=== PATIENT | female | born 1985 | race Caucasian/White ===

== ENCOUNTER 2017-10-04 01:17 | Outpatient (CLI) | payer OTHER | END 2017-10-04 01:18 | disposition home or self-care (01) | LOC: MRI 01:17 | PROVIDERS: ATTEND Neurological Surgery | DX: M51.16 Intervertebral disc disorders with radiculopathy, lumbar region (principal); M48.061 Spinal stenosis, lumbar region without neurogenic claudication | CPT/HCPCS: 72148 ==

== ENCOUNTER 2017-11-10 07:00 | Day surgery (SDC) | payer OTHER ==
[2017-11-09 11:30] VITALS: BMI 30.7
--- NOTE | 2017-11-09 15:32 | HP ---
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 She has had outpatient physical therapist assistant apy, traction, and injections, all of which have mildly held, but she continues retain the same pain and has progressive numbness over the lateral right foot. She has an MRI from [facility] at reveals profound central disk herniation at L5 which is most likely a definitive cause of her symp toms, and she is here to discuss further treatment at this time. PAST MEDICAL HISTORY: Includes migraines. CURRENT MEDICATIONS: Acetazolamide, amitriptyline, rizatriptan, Zofran, and multivitamin. ALLERGIES: No known drug allergies. PAST SURGICAL HISTORY: None. PHYSICAL EXAMINATION: Patient is alert and oriented x3. Gait is mildly antalgic. Lower extremity m otor exam is normal. She has a positive straight leg raise on the right. Reflexes are equal and pre sent bilaterally at the patella. ASSESSMENT: Lumbar radiculopathy. PLAN: Dr. Loya met with the patient, reviewed imaging and ultimately advocated for an L5 diskectomy . He explained to the patient the risks, benefits, and alternatives to the procedure. The patient e xpressed understanding and would like to move forward with surgery as discussed. I do believe the sarai pérez is mentally competent and capable of making medical decisions for herself and we will move forw jordyn with surgery as planned.
[2017-11-10] MEDS ORDERED: CEFAZOLIN/Water 2 GM/20 ML SYRINGE ONE ×2 (07:23→13:52)
[2017-11-10] MEDS ORDERED: Thrombin 5000 UNITS/5 ML VIAL ONE (07:45)
[2017-11-10] MEDS ORDERED: Bupivacaine/Epinephrine 0.25% 30 ML VIAL ONE (07:45)
[2017-11-10] MEDS ORDERED: Midazolam HCl 2 mg/2 ml Vial ONE (07:53)
[2017-11-10] MEDS ORDERED: Fentanyl 100 MCG/2 ML VIAL ONE ×4 (08:44→10:56)
[2017-11-10] MEDS ORDERED: Dexamethasone 20 MG/5 ML VIAL ONE (09:17)
[2017-11-10] MEDS ORDERED: SUGAMMADEX SODIUM 200 MG/2 ML VIAL ONE (10:38)
[2017-11-10] MEDS ORDERED: Promethazine HCl 25 MG/ML VIAL ONE (11:20)
--- NOTE | 2017-11-10 11:51 | OP ---
DATE OF PROCEDURE: 11/10/2017 SURGEON: Ag Loya M.D. FOLDING MACHINE TENDER: Edy Borrego PA-C. INDICATION: Pain. DIAGNOSIS: Lumbar radiculopathy secondary to large lumbar herniated nucleus pulposus. PROCEDURES PERFORMED: L5 laminectomy, L5 discectomy. ANESTHESIA: General. TECHNIQUE: The patient was brought into the operating room and placed under general anesthesia. She was flipped from a supine to a prone position on the operating room table. A linear incision was pl anned over the L5 segment. After prepping and draping and after an appropriate operative pause, the incision was created. Soft tissues were swept away from midline. A self-retaining retractor was therese abram in the wound for optimal exposure. After confirming the appropriate level with C-arm fluoroscopy , an Adson rongeur as well as 3 and 4 mm Kerrisons were used to perform laminectomy along the inferio r aspect of L5 and the superior aspect of S1. The dura was found to be somewhat protuberant secondar y to large disk herniation. We mobilized the thecal sac medially from both the right and leftward di rection where annulotomies were performed in the disk and disk material was removed until there was c omplete decompression of the underlying thecal sac and nerve roots. The wound was then irrigated. H emostasis was maintained throughout. The wound was then closed in anatomic layers and a pressure vero ssing was applied. There were no known procedural complications.
[2017-11-10] MEDS ORDERED: HYDROcodone/Acetaminophen 5/325 mg Tablet ONE (12:42)
== END 2017-11-10 14:15 | disposition home or self-care (01) ==
LOC: SDC 07:00
PROVIDERS: ATTEND Neurological Surgery
PROC: 01NB0ZZ Release Lumbar Nerve, Open Approach (ICD-10-PCS; principal; 2017-11-10)
PROC: 0ST20ZZ Resection of Lumbar Vertebral Disc, Open Approach (ICD-10-PCS; principal; 2017-11-10)
DX: M51.16 Intervertebral disc disorders with radiculopathy, lumbar region (principal); G43.909 Migraine, unspecified, not intractable, without status migrainosus; Z79.899 Other long term (current) drug therapy; Z97.5 Presence of (intrauterine) contraceptive device
CPT/HCPCS: 76001; 96374; J1100; J2250; J2550; J3010

== ENCOUNTER 2018-01-13 07:35 | Emergency (ER) | payer OTHER ==
[2018-01-13] MEDS ORDERED: Adacel (T-DAP) 0.5 ML VIAL ONE ×2 (08:12→08:15)
[2018-01-13] MEDS ORDERED: Dextrose 50% Abboject 50 ML SYRINGE IVP PRN (08:19)
[2018-01-13] MEDS ORDERED: Dextrose 5% in Water 1,000 ML IV PRN (08:19)
[2018-01-13] MEDS ORDERED: Insulin Regular 300 UNITS/3 ML VIAL SC PRN (08:19)
[2018-01-13 08:50] LABS: HIV (1/2) Antibody/Antigen Non-Reactive (NonReactive); HIV 1/2 INDEX 0.14 S/CO (<1.00); Hep C IgG Ab Non-Reactive (NonReactive); Hep C Index 0.13 S/CO (0-0.79)
[2018-01-13 09:51] LABS: HBSAB Concentration 24.12 mIU/mL; Hep B Surf AB Reactive (NonReactive)
[2018-01-13] MEDS ORDERED: Methocarbamol 500 MG TAB PO SCH (14:00)
== END 2018-01-13 08:35 | disposition home or self-care (01) ==
LOC: ERS 07:35
DX: S61.031A Puncture wound without foreign body of right thumb without damage to nail, initial encounter (principal); G43.909 Migraine, unspecified, not intractable, without status migrainosus; Z79.899 Other long term (current) drug therapy; W46.1XXA Contact with contaminated hypodermic needle, initial encounter
CPT/HCPCS: 36415; 86706; 86803; 87389; 90471; 90715

== ENCOUNTER 2018-08-15 17:47 | Emergency (ER) | payer OTHER ==
[2018-08-15] MEDS ORDERED: Ketorolac Tromethamine 30 MG/ML VIAL ONE (18:03)
[2018-08-15] MEDS ORDERED: diphenhydrAMINE 50 MG/ML VIAL ONE (18:03)
[2018-08-15] MEDS ORDERED: Metoclopramide HCl 10 MG/2 ML VIAL ONE (18:03)
[2018-08-15] MEDS ORDERED: methylPREDNISolone Sod Succ/PF 125 MG/2 ML VIAL ONE (18:03)
== END 2018-08-15 20:17 | disposition home or self-care (01) ==
LOC: SCSER 17:47
DX: G43.909 Migraine, unspecified, not intractable, without status migrainosus (principal)
CPT/HCPCS: 96361; 96374; 96375; J1200; J1885; J2765; J2930